=== PATIENT | female | born 1990 | race Caucasian/White ===

== ENCOUNTER 2018-02-19 22:42 | Emergency (ER) | payer MEDICAID ==
[~2018-02-19] VITALS: Ht 160 cm; Wt 98.0 kg
[2018-02-19 23:14] VITALS: BP 131/80; PULSE 79; RESP 18; TEMP 97.5; O2SAT 99
[2018-02-20] MEDS ORDERED: IBUPROFEN 600 MG TAB PO ONE (00:30)
--- NOTE | 2018-02-20 00:32 | PD ---
HPI Chief Complaint: Injury Time Seen by Provider: 00:18 Travel History International Travel<30 days: No Contact w/Intl Traveler<30days: No Traveled to known affect area: No History of Present Illness HPI 27yo F with c/o left hand pain s/p trip and fall today. Said she trip on a phone wire a few hours ago and fell or hit her left hand. Denies any head trauma or any other injuries. Denies any fever, chest pain, sob, n/v, abdominal pain, focal weakness or numbness. PFSH Past Medical History Medical History: Denies Significant Hx ?: Not LMP: 02/19/18 Past Surgical History Section: Yes Cholecystectomy: Yes Social History Alcohol Use: No Tobacco Use: Yes Substance Use: No Allergies-Medications (Allergen,Severity, Reaction): Coded Allergies: No Known Allergies (Unverified , 02/19/18) Reported Meds & Prescriptions Reported Meds & Active Scripts Active Hydrocodone-Acetaminophen 5-325 mg Tab 1 Tab PO Q6H PRN Ibuprofen 600 Mg Tab 600 Mg PO Q8H PRN Review of Systems Except as stated in HPI: all other systems reviewed are Neg Physical Exam Narrative GENERAL: 27yo F not in distress. SKIN: Focused skin assessment warm/dry. HEAD: Atraumatic. Normocephalic. EYES: Pupils equal and round. No scleral icterus. No injection or drainage. ENT: No nasal bleeding or discharge. Mucous membranes pink and moist. NECK: Trachea midline. No JVD. CARDIOVASCULAR: Regular rate and rhythm. No murmur appreciated. RESPIRATORY: No accessory muscle use. Clear to auscultation. Breath sounds equal bilaterally. GASTROINTESTINAL: Abdomen soft, non-tender, nondistended. MUSCULOSKELETAL: Left hand: +Radial pulse. +TTP 3rd and 4th metacarpal phalanges. Mild edema over 3rd and 4th metacarpal on dorsal aspect. No scaphoid ttp. No ttp distal radius or ulna. FROM in all digits. Sensation intact. No open wounds. NEUROLOGICAL: Awake and alert. No obvious cranial nerve deficits. Motor grossly within normal limits. Normal speech. PSYCHIATRIC: Appropriate mood and affect; insight and judgment normal. Data Data Last Documented VS Vital Signs Date Time Temp Pulse Resp B/P (MAP) Pulse Ox O2 Delivery O2 Flow Rate FiO2 02/19/18 23:14 97.5 79 18 131/80 (97) 99 Orders Orders Hand, Limited (2vws) (02/20/18 ) Ibuprofen (Motrin) (02/20/18 00:30) Ice/Cold Pack (02/20/18 00:50) Splint Or Brace Apply/Monitor (02/20/18 00:50) Acetamin-Hydrocod 325-5 Mg ([place] 5-325 (02/20/18 01:15) Ed Discharge Order (02/20/18 01:12) Sling Cradle Arm (02/20/18 ) Fiberglass Splint Forearm Adul (02/20/18 ) MDM Medical Decision Making Medical Screen Exam Complete: Yes Emergency Medical Condition: Yes Differential Diagnosis Contusion vs. fracture Narrative Course 27yo F with left hand pain s/p fall on it today. No other injuries. Xray left hand showed nondisplaced fracture of 4th metacarpal. Pt placed in ulnar gutter splint. She is right handed. Neurovascular intact. Pt given ibuprofen for pain but still in pain so given lortab which helped. Return precautions given. Diagnosis Primary Impression: Fracture of fourth metacarpal bone Qualified Codes: S62.355A - Nondisplaced fracture of shaft of fourth metacarpal bone, left hand, initial encounter for closed fracture Referrals: Page Dupree MD call for appointment Patient Instructions: General Instructions Departure Forms: Tests/Procedures, Work Release Enter return to work date: February 22, 2018 Special Instructions: Patient's left hand will be in a splint so should limit use of left hand until follow up with hand surgery if possible. Additional Instructions: Please follow up with hand surgery as outpatient. Return to the ED if symptoms worsen. Med/Other Pt SpecificInfo: Prescription(s) given Scripts Hydrocodone-Acetaminophen (Hydrocodone-Acetaminophen) 5-325 mg Tab 1 TAB PO Q6H Y for PAIN, #7 TAB 0 Refills Prov: Macie Banks DO 02/20/18 Ibuprofen (Ibuprofen) 600 Mg Tab 600 MG PO Q8H Y for PAIN, #20 TAB 0 Refills Prov: Macie Banks DO 02/20/18 Disposition: 01 DISCHARGE HOME Condition: Stable Macie Banks DO February 20, 2018 00:32
[2018-02-20] MEDS ORDERED: IBUP-232 PO (01:03)
[2018-02-20] MEDS ORDERED: HYDR-3516 PO (01:10)
--- NOTE | 2018-02-20 01:10 | RADRPT ---
EXAM DATE/TIME: 02/20/2018 00:24 [facility] COMPARISON: No previous studies available for comparison. INDICATIONS : Pain due to fall. MEDICAL HISTORY : None. SURGICAL HISTORY : Cholecystectomy. section. ENCOUNTER: Initial ACUITY: 1 day PAIN SCORE: 8/10 LOCATION: Left upper extremity hand, 2, 3, 4 digits, MCPJ's, & metacarpals FINDINGS: Limited AP and lateral views of the left hand were obtained and demonstrate an oblique fracture throu gh the fourth metacarpal midshaft is nondisplaced. There is overlying soft tissue swelling. No other fractures identified. CONCLUSION: Nondisplaced fracture through the fourth metacarpal. Shyam Francisco MD on February 20, 2018 at 1:06 Board Certified Radiologist. This report was verified electronically.
[2018-02-20] MEDS ORDERED: ACETAMINOPHEN/HYDROcodone 325 MG/5 MG TAB PO ONE (01:15)
== END 2018-02-20 01:25 | disposition home or self-care (01) ==
LOC: NEPD 22:42
DX: S62.355A Nondisplaced fracture of shaft of fourth metacarpal bone, left hand, initial encounter for closed fracture (principal); W01.0XXA Fall on same level from slipping, tripping and stumbling without subsequent striking against object, initial encounter
CPT/HCPCS: 29125; 73120